=== PATIENT | female | born 1960 | race Caucasian/White ===

== ENCOUNTER → 2022-03-26 16:52 | Outpatient (CLI) | payer MEDICAID, SELFPAY ==
--- NOTE | 2022-03-26 16:30 | DI.RAD_ITS ---
Exam(s) XR LUMBAR SPINE COMPLETE EXAM: XR LUMBAR SPINE COMPLETE CLINICAL HISTORY: LUMBAGO W SCIATICA-M54.40. TECHNIQUE: 2D digital imaging was performed. COMPARISON: CR LUMBAR SPINE COMPLETE from 06/21/2012 FINDINGS: Five views: There has been significant deterioration when compared to 2013. There is now multilevel significant disc space narrowing throughout the lumbosacral spine as well as a degenerative scoliosis convex right, these findings not previously present 9 years ago. There is slight loss of height of the right-side of L1, age indeterminate. IMPRESSION: As above. Significant deterioration compared to 2013 DATA REPOSITORY: RADIATION DOSE DELIVERED:
--- NOTE | 2022-03-26 17:33 | DI.VRAD_ITS ---
PROCEDURE INFORMATION: Exam: XR Lumbosacral Spine Exam date and time: 03/26/2022 5:03 PM Age: 61 years old Clinical indication: Pain; Lumbago with sciatica TECHNIQUE: Imaging protocol: Radiologic exam of the lumbosacral spine. Views: 4 or 5 views. COMPARISON: MR LS SPINE WO CONTRAST 10/05/2017 4:08 PM FINDINGS: Bones/joints: There is mild to moderate S-shaped lower thoracic and lumbar scoliosis. There is associated chronic appearing mild compression deformity of the right lateral aspect of the L1 vertebra. No acute compression fractures or displaced fractures are identified. There is moderate disc space narrowing T12-L3 with moderate endplate spurring at these levels consistent with moderate spondylosis. There are more mild degenerative changes at other levels. There is moderate facet arthrosis of the lower spine. There is mild right lateral subluxation of L2 relative to L1, likely chronic and degenerative. There are also multiple mild grade 1 AP lumbar subluxations which are also likely chronic and degenerative. Both sacroiliac joints are patent and symmetric. There is no evidence for spondylolysis. Soft tissues: Unremarkable. Vasculature: There is moderate atherosclerotic calcification of the lower abdominal aorta common arteries. IMPRESSION: 1. Multilevel moderate degenerative changes of the lumbar spine, as described above. 2. Multiple grade 1 lumbar subluxations, as described above, are likely chronic and degenerative. 3. Mild to moderate S-shaped lower thoracic and lumbar scoliosis. Dictated and Authenticated by: Nate Mendez MD. Ordering:PRASHANTH Moreno MD
== END ==
PROVIDERS: PCP Neuromusculoskeletal Medicine & OMM; Visit Provider Nurse Practitioner Family
DX: M47.816 Spondylosis without myelopathy or radiculopathy, lumbar region (principal); M41.9 Scoliosis, unspecified
CPT/HCPCS: 72110

== ENCOUNTER 2022-06-06 14:44 | Emergency (ER) | payer MEDICAID, SELFPAY ==
[2022-06-06 14:51] VITALS: BP 177/85; PULSE 73; RESP 20; TEMP 36.9; O2SAT 99
--- NOTE | 2022-06-06 15:30 | RT.EKG_ITS ---
APPROVED REPORT Exam: Resting ECG Reason for Exam: L shoulder arm pain. Patient Location: E HR:65 bpm ECG Measurements Heart Rate 65 AXIS CO 120 P 72 QRSd 80 QRS 56 QT 391 T 73 QTc 407 Conclusion Sinus rhythm...normal P axis, V-rate 60- 99 sinus rhtyhm. normal axis, normal intervals, non ischemic
--- NOTE | 2022-06-06 16:16 | DI.RAD_ITS ---
Exam(s) XR SHOULDER LT COMPLETE 2+V EXAM: XR SHOULDER LT COMPLETE 2+V CLINICAL HISTORY: shoulder pain. TECHNIQUE: 2D digital imaging was performed of the left shoulder. Five images were obtained. AP, G rashey, Y-view and axillary views were obtained. COMPARISON: No exams were available for comparison FINDINGS: BONES: No acute fracture is present. No bony destructive lesion is seen. JOINTS: No dislocation present. SOFT TISSUE: Normal. IMPRESSION: Unremarkable radiographs of the left shoulder. DATA REPOSITORY: RADIATION DOSE DELIVERED:
--- NOTE | 2022-06-06 16:17 | ED.GENADUL_ITS ---
Discharge Plan Disposition Patient Disposition: Home Condition: Improving Discharge Details Clinical Impression: Left shoulder pain Primary Care Provider: Ivan Parr ED Provider: Clayton Barrios Home Meds and New Rx's Prescriptions: New lidocaine [Lidoderm] 5 % adhesive patch,medicated 1 patch topical DAILY PRNQty: 15 0RF Rx Instructions: leave on most painful area for up to 12 hrs No Action albuterol sulfate [ProAir HFA] 8.5 GM HFA aerosol inhaler 1 puff Inhalation Q4H PRN Qty: 1 Combivent Respimat 4 GM mist 1 puff Inhalation QID Qty: 1 naproxen 250 MG tablet 1 tab PO PRN PRN budesonide-formoterol [Symbicort] 10.2 GM HFA aerosol inhaler 2 puff Inhalation DAILY methocarbamol 500 mg tablet 500 tab PO BID Label Comments: TAKE 2 TABLETS BY MOUTH 4 TIMES DAILY FOR 7 DAYS acetaminophen [Tylenol] 325 mg Tablet 650 mg PO PRN PRN meloxicam 15 mg tablet 15 tab PO DAILY Label Comments: TAKE ONE TABLET BY MOUTH DAILY lisinopril 20 mg tablet 20 tab PO DAILY Label Comments: TAKE ONE TABLET BY MOUTH DAILY magnesium 30 mg Tablet 60 mg PO DAILY Multivitamin 50 Plus Tablet 1 tab PO DAILY duloxetine 30 mg capsule,delayed release(DR/EC) 30 mg PO BID Label Comments: TAKE 1 CAPSULE BY MOUTH TWICE DAILY Discharge Instructions Instructions: Shoulder Pain (ED) Additional Instructions: Please follow-up with orthopedic team as needed. Medical Decision Making 62-year-old female presents with left shoulder pain over the past 3 days worse with movement, associate with tingling rating down her arm, patient is afebrile nontoxic no respiratory stress no chest pain. EKG nonischemic. Pain worse with abduction and rotation of shoulder. Concern for rotator cuff injury such as tear or partial tear versus cartilaginous injury, lower suspicion for dislocation or fracture. Trial of anti-inflammatory analgesia. Screening x-ray likely home with orthopedic follow-up. 17: 09 patient resting comfortably no acute distress mobility greatly improved after Toradol injection. Likely soft tissue injury. No evidence of fracture or dislocation. Home care instructions and return precautions given. HPI General Date/Time Provider Initiated Documentation: 06/06/22 15:18 . HPI Narrative: 62-year-old female presents with 3 days of left shoulder pain worse with movement, associated with tingling down into her arm. No chest pain or shortness of breath. Related Data Home Medications Medication Instructions Recorded Confirmed albuterol sulfate 90 mcg/actuation 1 puff inhalation Q4H PRN ##1 10/02/13 06/06/22 aerosol inhaler (ProAir HFA) ipratropium 20 mcg-albuterol 100 1 puff inhalation QID ##1 10/02/13 06/06/22 mcg/actuation mist for inhalation (Combivent Respimat) budesonide-formoterol HFA 160 2 puff inhalation DAILY 08/01/17 06/06/22 mcg-4.5 mcg/actuation aerosol inhaler (Symbicort) naproxen 250 mg tablet 1 tab PO PRN PRN 08/17/17 06/06/22 acetaminophen 325 mg tablet 650 mg PO PRN PRN 06/06/22 06/06/22 (Tylenol) duloxetine 30 mg capsule,delayed 30 mg PO BID 06/06/22 06/06/22 release lidocaine 5 % topical patch 1 patch topical DAILY PRN #15 ea 06/06/22 (Lidoderm) lisinopril 20 mg tablet 20 tab PO DAILY 06/06/22 06/06/22 magnesium 30 mg tablet 60 mg PO DAILY 06/06/22 06/06/22 meloxicam 15 mg tablet 15 tab PO DAILY 06/06/22 06/06/22 methocarbamol 500 mg tablet 500 tab PO BID 06/06/22 06/06/22 [id number] 1 tab PO DAILY 06/06/22 06/06/22 tablet (Multivitamin 50 Plus tablet) Previous Rx's Medication Instructions Recorded lidocaine 5 % topical patch 1 patch topical DAILY PRN #15 ea 06/06/22 (Lidoderm) Allergies Allergy/AdvReac Type Severity Reaction Status Date / Time prednisone Allergy Severe Unverified 06/06/22 14:54 aloe vera [From Flexall] Allergy Intermediate Unverified 06/06/22 14:54 cephalexin [Cephalexin] Allergy Intermediate Unverified 06/06/22 14:54 menthol [From Flexall] Allergy Intermediate Unverified 06/06/22 14:54 vitamin E (d-alpha Allergy Intermediate Unverified 06/06/22 14:54 tocopherol) [From Flexall] General Stated Complaint: Orthopedic ADÁN: 4 Review of Systems Narrative: Review of Systems Constitutional: negative Eyes: negative ENT: negative Cardiovascular: negative Respiratory: negative Gastrointestinal: negative : negative Musculoskeletal: Shoulder pain Skin: negative Neurologic: negative Psych: negative PFSH All Active Problems (Updated 06/06/22 @ 17:10 by Clayton Barrios MD) Left shoulder pain (Acute) Social History Smoking/Tobacco Use Status: Current every day Tobacco Type: cigarettes Smoking risk assessment performed?: Yes Drug use: Daily Substance use type: marijuana Do you feel safe at home: Yes Do you feel safe in your relationship?: Yes Exam Narrative Exam Narrative: Physical Examination General: alert, awake, cooperative, resting comfortably, no acute distress HEENT: normocephalic, atraumatic; PERRL, EOM intact, conjunctiva normal; no nasal discharge; moist mucous membranes, oral and pharyngeal mucosa normal, tolerating secretions Neck: supple, trachea midline; full ROM Chest: normal to inspection Respiratory: normal respiratory effort, speaking in full sentences, clear to auscultation, no wheezing, rales or rhonchi Cardiac: regular rate, regular rhythm, S1S2 intact, no murmurs rubs or gallops GI: abdomen soft, non-tender, non-distended; no palpable mass or hepatosplenomegaly Skin: no lesions, rashes or trauma appreciated Neuro: AAOx3, normal speech, moving all extremities Extremities: Holding left upper extremity adducted to side, pain with abduction and rotation of the shoulder, full range of motion elbow wrist and fingers, strength intact in distal aspect of extremity, radial pulse intact median radial and ulnar nerve distribution sensory exam intact Psych: Appropriate mood and affect Course Vital Signs Vital signs: Vital Signs Temperature 36.9 C 06/06/22 14:51 Pulse 73 06/06/22 14:51 Respiratory Rate 20 06/06/22 14:51 Blood Pressure 177/85 H 06/06/22 14:51 Pulse Oximetry 99 06/06/22 14:51 Temperature 36.9 C 06/06/22 14:51 Temperature Source Skin 06/06/22 14:51 Pulse 73 06/06/22 14:51 Respiratory Rate 20 06/06/22 14:51 Respiratory Effort 06/06/22 14:53 Blood Pressure 177/85 H 06/06/22 14:51 Blood Pressure Position Sitting 06/06/22 14:51 Pulse Oximetry 99 06/06/22 14:51 Oxygen Delivery Method Room Air 06/06/22 14:51 Oxygen Flow Rate 0 06/06/22 14:51 Pain Level 10 06/06/22 14:51
[2022-06-06] MEDS: Ketorolac 15 MG/ML VIAL IM (16:32)
[2022-06-06] MEDS: Lidocaine 5% Patch 1 PATCH TP (16:32)
--- NOTE | 2022-06-06 16:36 | DI.VRAD_ITS ---
PROCEDURE INFORMATION: Exam: XR Left Shoulder Exam date and time: 06/06/2022 4:16 PM Age: 62 years old Clinical indication: Pain; Shoulder; Left TECHNIQUE: Imaging protocol: Radiologic exam of the Left shoulder. Views: 2 or more views. COMPARISON: No relevant prior studies available. FINDINGS: Bones/joints: Normal. Soft tissues: Unremarkable. IMPRESSION: No acute bony findings. If clinical symptoms persist recommend followup film in 7-10 days. Dictated and Authenticated by: Clare Bustos MD. Ordering:PMAILE Arnold MD
== END 2022-06-06 17:15 | disposition home or self-care (01) ==
PROVIDERS: Emergency Provider Emergency Medicine; PCP Neuromusculoskeletal Medicine & OMM
DX: M25.512 Pain in left shoulder (principal)
CPT/HCPCS: 93005; 96372; 99284; 73030; 93010; J1885

== ENCOUNTER 2024-01-03 16:22 | Outpatient (CLI) | payer MEDICAID, SELFPAY ==
[2024-01-03 15:56] LABS: Abs Immature Grans 0.09 10^3/uL (0.0-0.06); Absolute Basophil Count 0.12 10^3/uL (0.0-0.2); Absolute Eosinophil Count 0.46 10^3/uL (0.0-0.7); Absolute Lymphocyte Count 1.17 10^3/uL (1.2-3.4); Basophils % 0.6 %; Eosinophils % 2.3 %; HCT 41.7 % (36.0-46.0); Immature Grans % 0.5 %; Lymphocytes % 5.9 %; MCH 29.7 pg (27.0-33.0); MCHC 33.6 % (32.0-36.0); MCV 88 fL (80-95); MPV 9.9 fL (8.0-11.0); Monocytes % 17.8 %; Neutrophils % 72.9 %; Platelet Count 252 10^3/uL (130-400); RBC 4.72 10^6/uL (3.93-5.22); RDW 14.7 % (11.7-14.6); RDW-SD 47.7 fL; WBC 19.81 10^3/uL (4.4-10.8)
[2024-01-03 16:02] LABS: Absolute Monocyte Count 3.53 10^3/uL (0.1-0.8); Absolute Neutrophil Count 14.44 10^3/uL (1.2-6.7)
[2024-01-03 16:17] LABS: ALT 19 U/L (14-59); AST 22 U/L (15-37); Albumin 3.3 g/dL (3.4-5.0); Alkaline Phosphatase 94 U/L (46-116); Anion Gap 7.9 mmol/L (3-11); BUN 21 mg/dL (7-18); Bilirubin, Total 0.58 mg/dL (0.2-1.0); CO2 27.1 mmol/L (21.0-32.0); CREATININE 1.3 mg/dL (0.55-1.02); Calcium 9.5 mg/dL (8.5-10.1); Chloride 94 mmol/L (98-107); Estimated GFR 45.92 (mL/min/1.73m2); Glucose 104 mg/dL (74-106); Potassium 4.2 mmol/L (3.5-5.1); Sodium 129 mmol/L (136-145); Total Protein 7.9 g/dL (6.4-8.2)
[2024-01-03 17:18] LABS: Diff Comment Diff Reviewed; RBC Morphology Normal
== END 2024-01-03 16:23 | disposition home or self-care (01) ==
LOC: LBO 16:22
PROVIDERS: PCP Neuromusculoskeletal Medicine & OMM; Visit Provider Physician Assistant
DX: N12 Tubulo-interstitial nephritis, not specified as acute or chronic (principal); N39.0 Urinary tract infection, site not specified; R68.89 Other general symptoms and signs; J11.1 Influenza due to unidentified influenza virus with other respiratory manifestations
CPT/HCPCS: 36415; 80053; 87040; 87077; 85025; 87086; 87186

== ENCOUNTER 2024-01-05 13:24 | Emergency (ER) | payer MEDICAID, SELFPAY ==
[2024-01-05 13:46] VITALS: BP 110/63; PULSE 82; RESP 16; TEMP 37.1; O2SAT 97
[2024-01-05 15:02] LABS: Bilirubin Negative (Negative); Blood Trace-lysed (Negative); Clarity Clear (Clear); Glucose Negative (Negative); Ketones Negative (Negative); Leukocyte Esterase Trace (Negative); Nitrite Negative (Negative); Urobilinogen 0.2 mg/dL (Up to 0.2); pH 5.5 (5-8)
[2024-01-05 15:16] LABS: Bacteria Negative HPF (Negative); C & S Indicated? No; Crystals Negative HPF (Negative); Epithelial Cells Rare HPF (Negative); Mucus Negative (Negative)
--- NOTE | 2024-01-05 15:20 | ED.GENADUL_ITS ---
Discharge Plan Disposition Patient Disposition: Home Discharge Details Clinical Impression: Infrarenal abdominal aortic aneurysm (AAA) without rupture, Bacteremia, Acute cystitis Primary Care Provider: Ivan Parr ED Provider: Nate Cheng Home Meds and New Rx's Prescriptions: New cefpodoxime 200 mg tablet 200 mg PO Q12H Qty: 20 0RF Rx Instructions: must administer with a meal/food Continued albuterol sulfate [ProAir HFA] 8.5 GM HFA aerosol inhaler 1 puff Inhalation Q4H PRN Qty: 1 Combivent Respimat 4 GM mist 1 puff Inhalation QID Qty: 1 naproxen 250 MG tablet 1 tab PO PRN PRN budesonide-formoterol [Symbicort] 10.2 GM HFA aerosol inhaler 2 puff Inhalation DAILY methocarbamol 500 mg tablet 500 tab PO BID Patient Comments: TAKE 2 TABLETS BY MOUTH 4 TIMES DAILY FOR 7 DAYS acetaminophen [Tylenol] 325 mg Tablet 650 mg PO PRN PRN meloxicam 15 mg tablet 15 tab PO DAILY Patient Comments: TAKE ONE TABLET BY MOUTH DAILY lisinopril 20 mg tablet 20 tab PO DAILY Patient Comments: TAKE ONE TABLET BY MOUTH DAILY magnesium 30 mg Tablet 60 mg PO DAILY Multivitamin 50 Plus Tablet 1 tab PO DAILY duloxetine 30 mg capsule,delayed release(DR/EC) 30 mg PO BID Patient Comments: TAKE 1 CAPSULE BY MOUTH TWICE DAILY lidocaine [Lidoderm] 5 % adhesive patch,medicated 1 patch topical DAILY PRNQty: 15 0RF Rx Instructions: leave on most painful area for up to 12 hrs Discharge Instructions Instructions: Abdominal aortic aneurysm, Urinary Tract Infection, Adult ED Additional Instructions: You are seen in the emergency department for your burning when urinating. You are found to have a urinary tract infection. Please take these antibiotics as directed. As we discussed if you develop fevers chills nausea or vomiting please return immediately to the emergency department. You are also found to have an enlarged blood vessel in your abdomen called an abdominal aortic an eurysm. The vascular surgery team at [facility] will arrange for follow-up with you in the next month. Discharge Data Discharge Date/Time-TO BE ENTERED AT DEPARTURE: 01/05/24 18:43 HPI General Date/Time Provider Initiated Documentation: 01/05/24 13:28 . HPI Narrative: MDM This is an overall well-appearing normothermic and not tachycardic 63-year-old female with positive blood cultures growing E. coli and positive similar urine cultures proved patient will receive repeat cultures empiric ceftriaxone and laboratory evaluation with CT scan given right lower quadrant tenderness. No history of ureterolithiasis and no significant flank pain to my suspicion is low for ureterolithiasis. No pain out of proportion to suggest necrotizing soft tissue infection. Patient has improving dysuria and frequency however will obtain repeat urinalysis. Patient not a diabetic. No rash to abdomen to suggest zoster. Patient not had diarrhea to suggest diverticulitis. She is not an alcoholic to suggest increased risk for pancreatitis. No abnormal vaginal discharge to suggest sexually transmitted infection. No persistent cough hypoxia nor abnormal lung sounds to suggest pneumonia so I did not obtain chest x-ray. 3:20 PM Urinalysis showing trace blood leukoesterase trace 5 PM Her basic metabolic panel showing no CATALINO. Mild hyperglycemia but normal anion gap normal bicarbonate?test not consistent with DKA. CBC shows anemia but no leukocytosis. 6:40 PM I spoke to Dr. Mcfarland from vascular surgery at [facility]. She will help to arrange for close outpatient follow-up with the patient in the next 4 weeks. I spoke with the patient and advised her to return to emergency department if you develop fevers could not eat or drink or if she developed any nausea or vomiting. Her E. coli sensitivities are still pending. Will discharge with twice daily cefpodoxime for 7 days and outpatient primary care follow-up. We also discussed return to the ED for sudden worsening abdominal pain which could indicate ruptured AAA though this is less likely based on the size of her aneurysm. HPI This is a 63-year-old tobacco use arrived to the emergency department in the setting of positive blood cultures. Patient was seen in urgent care several days ago in the setting of dysuria. She had positive E. coli. She has been receiving outpatient treatment with levofloxacin. She has been adherent with this medication. Endorsed decreased energy but last night was able to eat and drink. She endorses generalized abdominal pain. She endorses persistent but improving dysuria. She has never had ureterolithiasis. She endorses subjective fevers and shortness of breath. She has not taken any falls. She is requesting some crackers. She had a cough several days ago but this is improved. Exam General: Well-appearing in no acute distress speaking in complete sentences. Head: Normocephalic, atraumatic. Eye: Extraocular eye movements intact. No conjunctival injection. No scleral icterus. Ear, nose, mouth, throat: Grossly normal inspection. Normal voice, handling secretions normally. Neck: Trachea midline. Cardiovascular: Well-perfused distal extremities. Regular rate and rhythm Respiratory: Nonlabored respiration. Clear lungs bilaterally. Gastrointestinal: Nondistended abdomen. Generalized abdominal tenderness. No rebound. No guarding. Musculoskeletal: No edema. Moving all 4 extremities spontaneously. Skin: Normal for age and race, grossly normal temperature and turgor. No acute rash. Neurologic: Alert and appropriate, no apparent acute deficits. Psychiatric: Mood and manner are appropriate. Grooming and personal hygiene are appropriate. Related Data Home Medications ?Medication ?Instructions ?Recorded ?Confirmed albuterol sulfate 90 mcg/actuation 1 puff inhalation Q4H PRN ##1 10/02/13 01/05/24 aerosol inhaler (ProAir HFA) ipratropium 20 mcg-albuterol 100 1 puff inhalation QID ##1 10/02/13 01/05/24 mcg/actuation mist for inhalation (Combivent Respimat) budesonide-formoterol HFA 160 2 puff inhalation DAILY 08/01/17 01/05/24 mcg-4.5 mcg/actuation aerosol inhaler (Symbicort) naproxen 250 mg tablet 1 tab PO PRN PRN 08/17/17 01/05/24 acetaminophen 325 mg tablet 650 mg PO PRN PRN 06/06/22 01/05/24 (Tylenol) duloxetine 30 mg capsule,delayed 30 mg PO BID 06/06/22 01/05/24 release lidocaine 5 % topical patch 1 patch topical DAILY PRN #15 ea 06/06/22 01/05/24 (Lidoderm) lisinopril 20 mg tablet 20 tab PO DAILY 06/06/22 01/05/24 magnesium 30 mg tablet 60 mg PO DAILY 06/06/22 01/05/24 meloxicam 15 mg tablet 15 tab PO DAILY 06/06/22 01/05/24 methocarbamol 500 mg tablet 500 tab PO BID 06/06/22 01/05/24 [id number]-[id number]-ioimtk 1 tab PO DAILY 06/06/22 01/05/24 tablet (Multivitamin 50 Plus tablet) cefpodoxime 200 mg tablet 200 mg PO Q12H #20 tabs 01/05/24 Previous Rx's ?Medication ?Instructions ?Recorded lidocaine 5 % topical patch 1 patch topical DAILY PRN #15 ea 06/06/22 (Lidoderm) cefpodoxime 200 mg tablet 200 mg PO Q12H #20 tabs 01/05/24 Allergies Allergy/AdvReac Type Severity Reaction Status Date / Time prednisone Allergy Severe Nausea Unverified 01/05/24 13:50 aloe vera (From Flexall) Allergy Intermediate Hives Unverified 01/05/24 13:50 cephalexin (Cephalexin) Allergy Intermediate Nausea Unverified 01/05/24 13:50 menthol (From Flexall) Allergy Intermediate Hives Unverified 01/05/24 13:50 vitamin E (d-alpha Allergy Intermediate Itching Unverified 01/05/24 13:50 tocopherol) (From Flexall) General Stated Complaint: FlankPain ADÁN: 3 Course Vital Signs Vital signs: Vital Signs Temperature 37.1 C 01/05/24 13:46 Pulse 82 01/05/24 13:46 Respiratory Rate 16 01/05/24 13:46 Blood Pressure 110/63 01/05/24 13:46 Pulse Oximetry 97 01/05/24 13:46 Temperature 37.1 C 01/05/24 13:46 Temperature Source Oral 01/05/24 13:46 Pulse 82 01/05/24 13:46 Respiratory Rate 16 01/05/24 13:46 Blood Pressure 110/63 01/05/24 13:46 Pulse Oximetry 97 01/05/24 13:46 Oxygen Delivery Method Room Air 01/05/24 13:46 Oxygen Flow Rate 0 01/05/24 13:46 Pain Level 8 01/05/24 13:46 Lab/Test Results Lab/Test Results: Laboratory Tests Range/Units 01/05/24 13:59 Urine Color (Yellow) Yellow Urine Clarity (Clear) Clear Urine pH (5-8) 5.5 Ur Specific [place] (1.005-1.025) 1.020 Urine Protein (Neg-Trace) mg/dL 30 H Urine Ketones (Negative) mg/dL Negative Urine Blood (Negative) Trace-lysed H Urine Nitrite (Negative) Negative Urine Bilirubin (Negative) Negative Urine Urobilinogen (Up to 0.2) mg/dL 0.2 Ur Leukocyte Esterase (Negative) Trace H Urine RBC (0-2) HPF 3-5 H Urine WBC (0-5) HPF 5-10 Ur Epithelial Cells (Negative) HPF Rare Urine Crystals (Negative) HPF Negative Urine Bacteria (Negative) HPF Negative Urine Mucus (Negative) Negative Ur Culture Indicated? No Urine Glucose (Negative) mg/dL Negative Medical Decision Making Quality:SDOH Health Related Social Needs: No Data to Display PFSH All Active Problems (Updated 01/05/24 @ 17:32 by Nate Cheng MD) Acute cystitis (Acute) Bacteremia (Acute) Infrarenal abdominal aortic aneurysm (AAA) without rupture (Acute) Social History Smoking/Tobacco Use Status: Current every day Tobacco Type: cigarettes Smoking risk assessment performed?: Yes Drug use: Daily Substance use type: marijuana Do you feel safe at home: Yes Do you feel safe in your relationship?: Yes
[2024-01-05 15:25] VITALS: BP 101/59; PULSE 71; RESP 20; O2SAT 96
[2024-01-05] MEDS: cefTRIAXone 2 GM/50 ML BAG IVPB (15:51)
[2024-01-05] MEDS: Normal Saline 500 ML IV (15:51)
[2024-01-05 16:00] LABS: Abs Immature Grans 0.06 10^3/uL (0.0-0.06); HCT 37.3 % (36.0-46.0); HGB 12.5 g/dL (11.2-15.7); MCH 29.2 pg (27.0-33.0); MCHC 33.5 % (32.0-36.0); MCV 87 fL (80-95); MPV 9.8 fL (8.0-11.0); Platelet Count 242 10^3/uL (130-400); RBC 4.28 10^6/uL (3.93-5.22); RDW 14.9 % (11.7-14.6); RDW-SD 47.8 fL; WBC 11.84 10^3/uL (4.4-10.8)
[2024-01-05 16:10] LABS: Lactate 0.8 mmol/L (0.9-1.7)
[2024-01-05 16:15] LABS: BUN 20 mg/dL (7-18); CREATININE 1.2 mg/dL (0.55-1.02); Calcium 9.5 mg/dL (8.5-10.1); Chloride 94 mmol/L (98-107); Estimated GFR 50.55 (mL/min/1.73m2); Glucose 112 mg/dL (74-106); Potassium 3.9 mmol/L (3.5-5.1); Sodium 130 mmol/L (136-145)
--- NOTE | 2024-01-05 16:15 | DI.CT_ITS ---
Exam(s) CT ABDOMEN PELVIS W EXAM: CT ABDOMEN PELVIS W CLINICAL HISTORY: Right lower quadrant tenderness. TECHNIQUE: Imaging Protocol: Axial computed tomography images with coronal and sagittal reformatted images were created and reviewed CONTRAST MATERIAL: Intravenous: Omnipaque-350 100cc Oral: None COMPARISON: No exams were available for comparison FINDINGS: VISUALIZED LUNG BASES: No nodules nor pleural effusions evident. ABDOMEN: There is no ascites. LIVER: There are no focal hepatic lesions evident. No dilated intrahepatic ducts. GALLBLADDER/BILIARY: No obvious gallbladder pathology. CBD is not dilated. PANCREAS: No evidence of pancreatic mass nor dilatation of the pancreatic duct. SPLEEN: Spleen is not enlarged. No obvious intrasplenic lesions. Splenic and portal veins are paten t. ADRENALS: There are no significant adrenal masses. KIDNEYS:There are benign cysts noted in both kidneys, the largest in the posterior cortex of the righ t kidney and measuring 1.5 x 1.0 cm. The largest of the benign cysts in the left kidney measures 1.2 by 1.1 cm. These benign renal cysts do not require further imaging workup. There are no solid mateusz l masses.. No calculi in the right kidney. There is a tiny solitary punctate 1 mm calculus in the l eft kidney. Ureters are not dilated. No obvious findings in the urinary bladder. ABDOMINAL AORTA: There is an infrarenal abdominal aortic aneurysm with maximum diameter 2.7 cm and si gnificant mural plaque on the right side. This plaque extends into the origin of the right common il iac artery which is occluded. There is significant atherosclerotic involvement but no aneurysmal dil atation of the iliac arteries. LYMPH NODES:There is no retroperitoneal nor paraaortic adenopathy. ABDOMINAL WALL: No evidence of significant anterior abdominal wall nor inguinal hernia. GI: There is abundant fecal material in the colon. There is a paucity of intraperitoneal fat. The a ppendix cannot be identified as a separate structure. No obvious evidence of appendicitis. No free fluid. PELVIS: GI: There is sigmoid diverticuli without evidence of obvious acute diverticulitis. LYMPH NODES: There is no intrapelvic nor inguinal adenopathy. REPRODUCTIVE: Uterus size age-appropriate. No abnormal adnexal masses but there are dilated veins chantal th adnexal regions drain into dilated gonadal consistent with pelvic congestion syndrome URINARY BLADDER: No calculi nor obvious masses evident OSSEOUS: No fractures and no significant osseous lesions. Multilevel advanced chronic degenerative disc disease noted. Also degenerative scoliosis lumbar spin e convex right. IMPRESSION: 1. There is a paucity of intraperitoneal fat. The appendix cannot be identified as a separate struct ure. There is no obvious evidence of acute appendicitis. No evidence of diverticulitis. Abundant f ecal material is noted in the colon. There is no evidence of bowel obstruction. 2. There are dilated veins in both adnexal regions which drain into prominent gonadal veins. Consist ent with pelvic congestion syndrome. 3. The abdominal aorta is atherosclerotic and with a infrarenal abdominal aortic aneurysm measuring 2 .7 cm. There is significant atherosclerotic involvement of the iliac arteries including occlusion of the right common iliac artery at its origin. The left iliac artery is atherosclerotic but not occlu ded. There is no aneurysm of the iliac arteries. 4. There is a tiny 1 millimeter nonobstructive punctate calculus in the left kidney. Otherwise there is small bilateral benign cortical cysts in both kidneys (which by themselves do not require further imaging workup). Report called by myself to ER physician 01/05/2024 5:22 p.m. RADIATION DOSE DELIVERED: Total DLP DATA REPOSITORY: All CT scans at this facility are submitted to the National Radiology Data Registry (NRDR) Dose Index Registry (DIR) with the [employer] ([employer]). RADIATION OPTIMIZATION: All CT scans at this facility use at least one of these dose optimization te chniques: automated exposure control; mA and/or kV adjustment per patient size (includes targeted exa ms where dose is matched to clinical indication); or iterative reconstruction.
[2024-01-05 16:21] LABS: Absolute Basophil Count 0.36 10^3/uL (0.0-0.2); Absolute Eosinophil Count 0.12 10^3/uL (0.0-0.7); Absolute Lymphocyte Count 0.95 10^3/uL (1.2-3.4); Absolute Monocyte Count 2.25 10^3/uL (0.1-0.8); Absolute Neutrophil Count 8.17 10^3/uL (1.2-6.7); Atypical Lymphocytes % 2 %
[2024-01-05 16:22] LABS: Diff Comment Manual Differential; RBC Morphology Normal
[2024-01-05] MEDS: Normal Saline - Diluent 50 ML VIAL IJ (16:56)
[2024-01-05] MEDS: Omnipaque 350 MG/ML 100 ML BTL IJ (16:59)
[2024-01-05 19:05] VITALS: BP 154/73; PULSE 73; RESP 16; TEMP 36.8; O2SAT 98
--- NOTE | 2024-01-07 13:08 | W.ED.FU ---
Date of service: 01/07/24 Time of Service: 13:08 Follow Up Plan: I called this patient at home this afternoon to inquire as to how she was feeling. She reported that she was still low energy but that she had not had fevers nor chills. She reported that she was taking her antibiotics without nausea or vomiting. She reported that she was urinating at least once every 4 hours. I advised that she return to the emergency department if she did not feel well or if she wanted a reassessment. She had arranged for PCP follow-up on Wednesday next week, January 09.
== END 2024-01-05 18:43 | disposition home or self-care (01) ==
PROVIDERS: Emergency Medicine; Emergency Provider Emergency Medicine; PCP Neuromusculoskeletal Medicine & OMM
DX: R30.0 Dysuria (principal); N39.0 Urinary tract infection, site not specified; I71.43 Infrarenal abdominal aortic aneurysm, without rupture
CPT/HCPCS: 36415; 80048; 87040; 96365; 99285; 74177; 81003; 81015; 83605; 85025; 99283; J0696; J3490